=== PATIENT | female | born 1980 | race Caucasian/White ===

== ENCOUNTER 2022-02-19 19:54 | Emergency (ER) | payer OTHER ==
[2022-02-19 20:53] LABS: BASOPHIL 0.9 % (0-2); EOSINOPHIL 1.1 % (0-5); HGB 14.2 g/dl (12.5-16.0); MCH 28.5 pg (25.0-31.0); MCHC 32.3 g/dL (32.0-36.0); MCV 88.4 fL (78.0-100.0); MONOCYTE 5.7 % (0-12); MPV 11.2 fL (6.0-9.5); NEUTROPHIL 59.9 % (41-80); NRBC 0; PLT 162 K/uL (150-400); RBC 4.98 M/uL (4.20-5.40); RDW 18.6 % (11.5-14.0); WBC 8.5 K/uL (4.0-10.5)
[2022-02-19 20:53] LABS: BILIRUBIN NEGATIVE (NEGATIVE); BLOOD 2+ Ery/uL (NEGATIVE); CLARITY CLEAR (CLEAR); COLOR YELLOW (YELLOW); GLUCOSE (U) NORMAL (NORMAL); LEUKOCYTES 1+ Leu/uL (NEGATIVE); NITRITE NEGATIVE (NEGATIVE); PROTEIN 2+ mg/dL (NEGATIVE); pH 6.5 (5.0-9.0)
[2022-02-19 21:09] LABS: BACTERIA 3+; URINARY WBC 20-50
[2022-02-19 21:10] LABS: ALBUMIN 4.1 g/dL (3.4-5.0); BILIRUBIN - TOTAL 1.5 mg/dL (0.2-1.0); BUN/CREAT RATIO (CALC) 14.3 RATIO; CREATININE 1.12 mg/dL (0.51-0.95); GLOBULIN (CALCULATION) 3.8 g/dL; POTASSIUM 3.6 mmol/L (3.5-5.1); TOTAL PROTEIN 7.9 g/dL (6.4-8.2)
[2022-02-19 21:29] LABS: LACTIC ACID 1.8 mmol/L (0.4-1.9)
[2022-02-19] MEDS ORDERED: NORCO 5-325 TA1 EACH PO (22:44)
[2022-02-19] MEDS ORDERED: CEFDINIR300 M1 PO (22:50)
== END 2022-02-19 23:00 | disposition home or self-care (01) ==
LOC: FER 19:54
PROVIDERS: Physician Assistant
DX: N20.2 Calculus of kidney with calculus of ureter (principal); J90 Pleural effusion, not elsewhere classified; I31.3 Pericardial effusion (noninflammatory); R60.1 Generalized edema; E11.9 Type 2 diabetes mellitus without complications; E03.9 Hypothyroidism, unspecified; Z28.310 Unvaccinated for COVID-19; Z79.84 Long term (current) use of oral hypoglycemic drugs; Z79.890 Hormone replacement therapy
CPT/HCPCS: 36415; 80053; 81001; 83605; 83880; 84484; 85025; 93005